=== PATIENT | female | born 1995 | race Caucasian/White ===

== ENCOUNTER 2018-11-20 12:56 | Emergency (ER) | payer OTHER ==
[2018-11-20] MEDS ORDERED: Lidocaine 1% INJ* 10 MG/ML 30 ML SDV ONE (13:08)
[2018-11-20] MEDS ORDERED: Lidocaine 1% INJ* 10 MG/ML 30 ML SDV INJ ONE (13:08)
[2018-11-20] MEDS ORDERED: Morphine 4 MG/ML VIAL (1 ml) 4 MG/ML VIAL IV ONE (13:09)
--- NOTE | 2018-11-20 13:15 | ED ---
Upper Extremity Pain - HPI Summary HPI Summary: This patient is a female presenting to [facility] with a chief complaint of left shoulder dislocation one hour ago. The patient was scuba diving when she reached back and the shoulder popped out of its socket. She states this has happened numerous times and she is normally able to pop it back in but she could not this time. She states she is planning on getting surgery soon. EMS gave her 10 mg of morphine [employer]. She states she feels numbness/tingling in her fingers in the dislocated shoulder. Medications reviewed. Allergies noted. - History of Current Complaint Stated Complaint: L SHOULDER DISLOCATION PER EMS Hx Obtained From: Patient Onset/Duration: Started Hours Ago Timing: Constant Pain Location: Shoulder - Allergies/Home Medications Allergies/Adverse Reactions: Allergies Allergy/AdvReac Type Severity Reaction Status Date / Time No Known Allergies Allergy Verified 11/20/18 13:09 Home Medications: Home Medications Ethinyl Estradiol/Drospirenone [Rain 28 Tablet] 1 each PO DAILY 11/20/18 [ History Confirmed 11/20/18] Fluoxetine HCl [Prozac] 40 mg PO DAILY 11/20/18 [History Confirmed 11/20/18] Lisdexamfetamine Dimesylate [Vyvanse] 60 mg PO DAILY 11/20/18 [History Confirmed 11/20/18] Spironolactone 50 mg PO DAILY 11/20/18 [History Confirmed 11/20/18] PMH/Surg Hx/FS Hx/Imm Hx Cardiovascular History: Denies: Hx Coronary Artery Disease Respiratory History: Denies: Hx Asthma - Family History Known Family History: Positive: Non-Contributory - Social History Occupation: Student Hx Substance Use: Yes Substance Use Type: Reports: Marijuana Hx Tobacco Use: No Review of Systems Positive: Other - Left shoulder dislocation Positive: Numbness All Other Systems Reviewed And Are Negative: Yes Physical Exam - Summary Physical Exam Summary: Constitutional: Well-developed, Well-nourished, Alert, Cooperative Skin: Warm, Dry HENT: Normocephalic; No Racoons eyes; No baldwin's sign; No abrasion; No contusion; No hemotympanum; No maxilla facial tenderness or instability; Dentition are smooth; No dental trauma; No trismus Eyes: EOM normal, PERRL Neck: Trachea is midline. No stridor; No JVD; No step off; No posterior cervical spine tenderness Cardio: Rhythm regular, rate normal Heart sounds normal; Intact distal pulses; The pedal pulses are 2+ and symmetric. Radial pulses are 2+ and symmetric. Pulmonary/Chest wall: Effort normal; Breath sounds normal; Equal chest rise; No flail segment; No rib tenderness; No sternal tenderness Abd: Soft, Appearance normal. No distension; No tenderness; No palpable pulsatile mass; No Cullens sign; No Bacon-Turners sign Musculoskeletal: Full ROM and no tenderness at hips, ankles, elbows and knees; No vertebral body tenderness; No paraspinal tenderness; No step off or deformity of the spine; Pelvis is stable to lateral compression and rock. Step off left shoulder, left shoulder sensation in tact. Pulses 2+. Patient unable to move left shoulder. Tingling in 3 fingers on the left hand. Neuro: Alert, Oriented x3, Strength 5/5 all extremities. : No blood at urethral meatus Psych: Mood and affect Normal Triage Information Reviewed: Yes Vital Signs On Initial Exam: Temp Pulse Resp BP Pulse Ox 98.0 F 102 16 150/91 99 11/20/18 13:06 11/20/18 13:06 11/20/18 13:17 11/20/18 13:06 11/20/18 13:06 Vital Signs Reviewed: Yes Procedures - Joint Reduction Left Joint Reduction Site: shoulder (L) Conscious Sedation: No Reduction Attempts: 2 - 10 CCs of 1% Lidocaine used. Extended her arm, then externally rotated it. Pre-Procedure NV Exam: Yes - Intact Post Joint Reduction Film: joint reduced Diagnostics - Laboratory Lab Statement: Any lab studies that have been ordered have been reviewed, and results considered in the medical decision making process. - Radiology Prereduction Left Shoulder XR Radiology Interpretation Completed By: Radiologist Summary of Radiographic Findings: Anterior inferior dislocation of the left humerus. ED Provider has reviewed this report. Postreduction Shoulder XR Radiology Interpretation Completed By: Radiologist Summary of Radiographic Findings: Reduction of previously identified anterior inferior dislocation of the left humerous. ED Provider has reviewed this report. Course/Dx - Course Course Of Treatment: Patient is here with a left shoulder dislocation. Patient has had multiple dislocations in the past. Patient had a Nexium which showed a anterior shoulder dislocation. Patient had lidocaine injected into her joint space and was given morphine and then Dilaudid for pain control. Patient had successful reduction of her shoulder is placed in a sling. Patient was given orthopedic surgery follow-up. - Diagnoses Provider Diagnoses: Recurrent dislocation, left shoulder Discharge ED - Sign-Out/Discharge Documenting (check all that apply): Patient Departure - Discharge Patient Received Moderate/Deep Sedation with Procedure: No - Discharge Plan Condition: Stable Disposition: HOME Prescriptions: Acetaminop/Codeine 30 MG TAB* [Tylenol/Codeine 30 MG TAB*] 1 tab PO Q8H PRN #12 tab MDD 3 tablets PRN Reason: Pain - Moderate Patient Education Materials: Shoulder Dislocation (ED) Referrals: [facility] [Provider Group] Additional Instructions: Take Ibuprofen for pain. Take prescription medication if pain is severe. Wear your sling for one week. Follow up with Orthopedic Surgery as soon as possible. - Billing Disposition and Condition Condition: STABLE Disposition: Home - Attestation Statements Document Initiated by Phillibe: Yes Documenting Scribe: Konrad Gonzalez Provider For Whom Scribe is Documenting (Include Credential): Narciso Sue MD Scribe Attestation: Konrad Villarreal scribed for Narciso Sue MD on 11/20/18 at 1510. Scribe Documentation Reviewed: Yes Provider Attestation: The documentation as recorded by the Konrad whitney accurately reflects the service I personally performed and the decisions made by Narciso loomis MD Status of Scribe Document: Viewed
[2018-11-20] MEDS ORDERED: HYDROmorphone INJ* 0.5 MG/0.5 ML SYRINGE IV SLOW PU ONE (13:42)
[2018-11-20 15:02] VITALS: BP 122/86
== END 2018-11-20 15:01 | disposition home or self-care (01) ==
LOC: ED 12:56
DX: M24.412 Recurrent dislocation, left shoulder (principal); X50.9XXA Other and unspecified overexertion or strenuous movements or postures, initial encounter; Y93.15 Activity, underwater diving and snorkeling; Y92.9 Unspecified place or not applicable; Z79.899 Other long term (current) drug therapy
CPT/HCPCS: 23650; 96374; 96375; 99284; J1170; J2270